=== PATIENT | male | born 1945 | race African-American/Black ===

== ENCOUNTER 2022-06-19 03:13 | Emergency (ER) | payer SELFPAY ==
[~2022-06-19] VITALS: Ht 182.9 cm; Wt 63.5 kg
[2022-06-19 03:35] VITALS: BP 144/72
[2022-06-19] MEDS ORDERED: ACETAMINOPHEN ES 500 MG TABLET PO ONE (04:00)
[2022-06-19] MEDS ORDERED: IBUPROFEN 600 MG TABLET PO ONE (04:00)
[2022-06-19] MEDS ORDERED: IBUPROFEN 600 MG TABLET ONE (04:01)
[2022-06-19] MEDS ORDERED: ACETAMINOPHEN ES 500 MG TABLET ONE (04:01)
== END 2022-06-19 05:29 | disposition home or self-care (01) ==
LOC: ER 03:25
DX: M79.651 Pain in right thigh (principal)
CPT/HCPCS: 73502